=== PATIENT | female | born 1965 | race Caucasian/White ===

== ENCOUNTER 2016-03-21 15:18 | Outpatient (CLI) | payer MEDICAID | END 2016-03-21 15:19 | disposition home or self-care (01) | DX: M54.12 Radiculopathy, cervical region (principal); M54.2 Cervicalgia; M25.521 Pain in right elbow; Z98.1 Arthrodesis status ==

== ENCOUNTER 2016-07-25 13:25 | Outpatient (CLI) | payer MEDICAID ==
--- NOTE | 2016-07-28 11:25 | Mammography Report ---
DIGITAL BILATERAL SCREENING MAMMOGRAM: 07/25/2016 CLINICAL HISTORY: A 51-year-old female in for routine screening mammogram. The patient has no family history of breast cancer. The patient has had no prior breast surgeries. The patient reports tenderness along the left side of the breast. COMPARISON: None. TECHNIQUE: Craniocaudad and oblique lateral views of each breast were obtained with [employer] full field digital mammography. FINDINGS: The breast parenchyma consists of scattered fibroglandular densities. No significant clusters of calcification are noted in the breasts. There is a 0.6 cm well-circumscribed mass noted in the 4-5 o'clock position of the right breast 6-7 cm posterior and inferior to the nipple. Recommend patient return for coned down compression and craniocaudad and oblique lateral views as well as a lateral medial view of this breast for further evaluation. If findings are still suspicious for a small mass in this area on these additional views, then an ultrasound is indicated for further evaluation. IMPRESSION: EQUIVOCAL FINDING IN REGARD TO AN 0.6 CM MASS IN THE 4-5 O'CLOCK POSITION IN THE RIGHT BREAST. RECOMMEND ADDITIONAL VIEWS OF THE RIGHT BREAST AND IF INDICATED, A RIGHT BREAST ULTRASOUND. BIRADS CATEGORY 0-INCOMPLETE. RECOMMENDATION: NEEDS ADDITIONAL IMAGING EVALUATION. ADDITIONAL VIEWS OF THE RIGHT BREAST AND IF INDICATED, RIGHT BREAST ULTRASOUND. STANDARD QUALIFYING STATEMENTS 1. This examination was reviewed with the aid of Computer-Aided Detection (CAD). 2. A negative or benign imaging report should not delay biopsy if clinically suspicious findings are present. Consider surgical consultation if warranted. More than 5% of cancers are not identified by imaging. 3. Dense breasts may obscure an underlying neoplasm. JOB #: [id number] EXT JOB #: [id number] [facility]EL[facility]
== END 2016-07-25 13:26 | disposition home or self-care (01) ==
LOC: DI 13:25
PROVIDERS: ATTEND Nurse Practitioner Gerontology
DX: Z12.39 Encounter for other screening for malignant neoplasm of breast (principal); N63 Unspecified lump in breast
CPT/HCPCS: 77067

== ENCOUNTER 2016-07-25 13:28 | Outpatient (CLI) | payer MEDICAID ==
--- NOTE | 2016-07-26 06:58 | Ultrasound Report ---
EXAM: PELVIC ULTRASOUND EXAM DATE: 07/25/2016 06:36 PM. CLINICAL HISTORY: Abdominal and pelvic pain. COMPARISON: None. TECHNIQUE: Realtime transabdominal pelvic scan performed to identify the uterus and adnexa and as an overview of other pelvic structures, followed by transvaginal scan to provide greater detail of the u terus and adnexa, with static image documentation. FINDINGS: Uterus: 7.3 x 4.6 x 3.5 cm, volume 61.4 cc. Anteverted position. Heterogeneous echotexture. Masses: None. Endometrium: 4.6 mm. Normal. Cervix: Nabothian cyst Right Ovary: Surgically absent. Left Ovary: 3.6 x 3.5 x 3.6 cm, volume 23.7 cc. Blood flow is seen in the ovary. Dominant complex sep tated cyst measuring 3.6 x 3.5 x 3.6 cm. Smaller cyst measuring 2.5 x 1.9 x 2.7 cm. Free Fluid: Trace amount. Other: None. IMPRESSION: 1. Enlarged left ovary with complex septated cyst and smaller simple cyst. Recommend six-week follow- up ultrasound. 2. Right ovary is surgically absent. [facility] Referring Provider Line: [phone] SITE ID: [id number]
== END 2016-07-25 13:29 | disposition home or self-care (01) ==
LOC: DI 13:28
PROVIDERS: ATTEND Nurse Practitioner Gerontology
DX: N83.202 Unspecified ovarian cyst, left side (principal); Z90.721 Acquired absence of ovaries, unilateral
CPT/HCPCS: 76830; 76856